=== PATIENT | female | born 1990 | race Caucasian/White ===

== ENCOUNTER 2017-12-21 15:52 | Observation (INO) | payer OTHER ==
[~2017-12-21] VITALS: Ht 157.5 cm; Wt 61.2 kg
[~2017-12-21 15:52] MED LIST: LO LOESTRIN FE1 TAB PO
--- NOTE | 2017-12-21 16:55 | ED GI/GU/ABDOMINAL COMPLAINT ---
History of Present Illness General Chief Complaint: Abdominal Pain/Flank Pain Stated Complaint: R SIDE ABD PAIN Source: patient Exam Limitations: no limitations Vital Signs & Intake/Output Vital Signs & Intake/Output Vital Signs Date Time Temp Pulse Resp B/P B/P Pulse O2 O2 Flow FiO2 Mean Ox Delivery Rate 12/21 1859 98.2 74 16 135/60 100 Room Air 12/21 1600 99.3 74 15 122/72 98 Room Air Room Air Allergies Coded Allergies: No Known Allergies (12/21/17) Reconcile Medications NORETHINDRONE-E.ESTRADIOL-IRON (Lo Loestrin Fe 1-10 Tablet) 1MG-10(24) TABLET 1 TAB PO DAILY CONTROL (Reported) Triage Note: PT SENT TO ED FROM URGENT CARE FOR R/O APPENDICITIS. PT HAS RLQ ABD PAIN SINCE YESTERDAY. +N/-V/-D. PT'S TEMP 99.3 IN TRIAGE. Triage Nurses Notes Reviewed? yes ? N Is pt currently ? No Onset: Abrupt Duration: day(s): (2), constant, getting worse Timing: recent history Location: right lower quadrant Radiation: no radiation Activities at Onset: none No Modifying Factors: none HPI: 27-year-old female comes into the emergency room for further evaluation of abdominal pain that started above her belly button that is now localized to the right lower side of her abdomen getting progressively worse since yesterday. Decreased appetite. Denies any fever vomiting. Eyes any changes in bowel movement. Denies any vaginal discharge or urinary symptoms. Denies any prior abdominal surgeries. She comes in for further evaluation. Past History Travel History Traveled to [place] past 21 day No Medical History Any Pertinent Medical History? see below for history Neurological: NONE EENT: NONE Cardiovascular: NONE Respiratory: NONE Gastrointestinal: colitis Hepatic: NONE Surgical History Surgical History: none Psychosocial History What is your primary language Romanian Tobacco Use: Never used ETOH Use: occasional use Illicit Drug Use: denies illicit drug use Family History Hx Contributory? No Review of Systems Review of Systems Constitutional: Reports: no symptoms. EENTM: Reports: no symptoms. Respiratory: Reports: no symptoms. Cardiovascular: Reports: no symptoms. GI: Reports: see HPI. Genitourinary: Reports: no symptoms. Musculoskeletal: Reports: no symptoms. Skin: Reports: no symptoms. Neurological/Psychological: Reports: no symptoms. Hematologic/Endocrine: Reports: no symptoms. Immunologic/Allergic: Reports: no symptoms. All Other Systems: Reviewed and Negative Physical Exam Physical Exam General Appearance: well developed/nourished, alert, awake, mild distress Head: atraumatic, normal appearance Eyes: Bilateral: normal appearance. Ears, Nose, Throat, Mouth: hearing grossly normal, moist mucous membrane Neck: normal inspection Respiratory: normal breath sounds, no respiratory distress Cardiovascular: regular rate/rhythm Gastrointestinal: soft, tenderness (RLQ) Back: normal inspection Extremities: normal range of motion Neurologic/Psych: awake, alert, oriented x 3 Skin: intact, normal color Core Measures ACS in differential dx? No Sepsis Present: No Sepsis Focused Exam Completed? No Progress Differential Diagnosis: appendicitis, diverticulitis, ectopic , ovarian cyst, ovarian torsion Plan of Care: Orders Procedure Date/time Status URINE 12/21 1653 Complete PARTIAL THROMBOPLASTIN TIME 12/21 1653 Complete PROTHROMBIN TIME 12/21 1653 Complete COMPREHENSIVE METABOLIC PANEL 12/21 1653 Complete CBC WITHOUT DIFFERENTIAL 12/21 1653 Complete Current Medications Sig/Kermit Start time Last Medication Dose Stop Time Status Admin Ampicillin Sodium/ 3,000 MG ONCE ONE 12/21 1900 AC Sulbactam Sodium 12/21 192 (Unasyn) Sodium Chloride 100 ML (Normal Saline 0.9%) Laboratory Tests 12/21/17 1708: Urine Test NEGATIVE 12/21/17 170: Anion Gap 14, Estimated GFR > 60, BUN/Creatinine Ratio 15.0, Glucose 86, Calcium 9.7, Total Bilirubin 0.5, AST 24, ALT 16, Alkaline Phosphatase 47, Total Protein 8.0, Albumin 4.6, Globulin 3.4, Albumin/Globulin Ratio 1.4, PT 11.5, INR 1.05, APTT 26, CBC w Diff NO MAN DIFF REQ, RBC 5.02, MCV 83.4, MCH 27.6, MCHC 33.2, RDW 12.4, MPV 7.6, Gran % 83.0 H, Lymphocytes % 10.6 L, Monocytes % 5.5, Eosinophils % 0.5, Basophils % 0.4, Absolute Granulocytes 10.5 H, Absolute Lymphocytes 1.3, Absolute Monocytes 0.7 H, Absolute Eosinophils 0.1, Absolute Basophils 0 Diagnostic Imaging: Viewed by Me: CT Scan. Discussed w/RAD: CT Scan. Radiology Impression: PATIENT: HUGH COOPER PRESENT AGE: 27 PATIENT ACCOUNT NO: [id number] : 90 LOCATION: [facility] ORDERING PHYSICIAN: Golden MARTINI SERVICE DATE: 12/21/17 EXAM TYPE : CAT - CT ABD & PELVIS W IV CONTRAST EXAMINATION: CT ABDOMEN AND PELVIS WITH CONTRAST CLINICAL INFORMATION: Right lower quadrant pain. COMPARISON: None TECHNIQUE: Multidetector volumetric imaging was performed of the abdomen and pelvis following IV administration of 95 mL of Optiray 320 intravenous contrast. Sagittal and coronal reformatted images were obtained on the technologist's workstation. DLP: 234.18 mGy-cm FINDINGS: LUNG BASES: The visualized lung bases are unremarkable. LIVER, GALLBLADDER, AND BILIARY TREE: The liver is normal in size, shape, and attenuation. No focal hepatic lesion or biliary ductal dilatation is present. The gallbladder is unremarkable with no evidence of radiopaque gallstones, gallbladder wall thickening, or obvious pericholecystic inflammatory changes. PANCREAS: Unremarkable. SPLEEN: Unremarkable. ADRENAL GLANDS: Unremarkable. KIDNEYS AND URETERS: The kidneys are normal in size, shape , and attenuation. No hydronephrosis, hydroureter, or calculi seen. No perinephric stranding. BLADDER: Unremarkable. GASTROINTESTINAL TRACT: The small and large bowel are unremarkable. The appendix is edematous measuring 1 cm in diameter with edema in the periappendiceal fat. Findings of appendicitis without perforation. MESENTERY: Small volume of fluid in the cul-de-sac. ABDOMINAL WALL: No significant hernia is appreciated. LYMPH NODES: Normal. VASCULAR: Unremarkable. PELVIC VISCERA: Unremarkable. OSSEOUS STRUCTURES: Unremarkable. IMPRESSION: Appendicitis. DICTATED BY: Jacoby Gutiérrez MD DATE/TIME DICTATED:1832 HEALTHCARE MANAGEMENT CONSULTANT:MELLISA DATE/TIME TRANSCRIBED:12/21/171832 CONFIDENTIAL, DO NOT COPY WITHOUT APPROPRIATE AUTHORIZATION. <Electronically signed in Other Vendor System> SIGNED BY: Jacoby Gutiérrez MD 12/21/171841 Initial ED EKG: none Comments: 12/21/2017 7:02:[address] duenas [facility] Departure Disposition: STILL A PATIENT Condition: Stable Clinical Impression Primary Impression: Acute appendicitis Referrals: Chano Swartz DO (PCP/Family) Departure Forms: Customer Survey General Discharge Information OR/GI Note Spoke With: Cem Duenas DO ED Treatment Decision: LIZZIE COOPEREN requires urgent operative management or an emergent procedure that cannot be performed in the Emergency Room setting. Transport To: [facility] Critical Care Note Critical Care Note Critical Care Time: 30-74 min (35)
[2017-12-21 17:27] LABS: ABSOLUTE BASOPHIL COUNT 0 /CUMM (0.0-0.2); ABSOLUTE EOSINOPHIL COUNT 0.1 /CUMM (0.0-0.7); ABSOLUTE GRANULOCYTE CT 10.5 /CUMM (1.4-6.5); ABSOLUTE LYMPH COUNT 1.3 /CUMM (1.2-3.4); ABSOLUTE MONOCYTE COUNT 0.7 /CUMM (0.10-0.60); BASOPHIL % 0.4 % (0.0-2.0); EOSINOPHIL % 0.5 % (0-5); HEMATOCRIT 41.9 % (37-47); MEAN CORPUSCULAR HGB 27.6 PG (27.0-31.0); MEAN CORPUSCULAR HGB CONC 33.2 G/DL (33.0-37.0); MEAN CORPUSCULAR VOLUME 83.4 FL (81.0-99.0); MEAN PLATELET VOLUME 7.6 FL (7.4-10.4); PLATELET COUNT 369 /CUMM (130-400); RBC DISTRIBUTION WIDTH 12.4 % (11.5-14.5); RED BLOOD CELL CT 5.02 /CUMM (4.20-5.40); WHITE BLOOD CELL COUNT 12.6 /CUMM (4.8-10.8)
[2017-12-21 17:32] LABS: PT 11.5 SEC (9.4-12.5); PTT 26 SEC (25-37)
--- NOTE | 2017-12-21 18:42 | CT SCAN REPORT ---
EXAMINATION: CT ABDOMEN AND PELVIS WITH CONTRAST CLINICAL INFORMATION: Right lower quadrant pain. COMPARISON: None TECHNIQUE: Multidetector volumetric imaging was performed of the abdomen and pelvis following IV administration of 95 mL of Optiray 320 intravenous contrast. Sagittal and coronal reformatted images were obtained on the technologist's workstation. DLP: 234.18 mGy-cm FINDINGS: LUNG BASES: The visualized lung bases are unremarkable. LIVER, GALLBLADDER, AND BILIARY TREE: The liver is normal in size, shape, and attenuation. No focal hepatic lesion or biliary ductal dilatation is present. The gallbladder is unremarkable with no evidence of radiopaque gallstones, gallbladder wall thickening, or obvious pericholecystic inflammatory changes. PANCREAS: Unremarkable. SPLEEN: Unremarkable. ADRENAL GLANDS: Unremarkable. KIDNEYS AND URETERS: The kidneys are normal in size, shape, and attenuation. No hydronephrosis, hydroureter, or calculi seen. No perinephric stranding. BLADDER: Unremarkable. GASTROINTESTINAL TRACT: The small and large bowel are unremarkable. The appendix is edematous measuring 1 cm in diameter with edema in the periappendiceal fat. Findings of appendicitis without perforation. MESENTERY: Small volume of fluid in the cul-de-sac. ABDOMINAL WALL: No significant hernia is appreciated. LYMPH NODES: Normal. VASCULAR: Unremarkable. PELVIC VISCERA: Unremarkable. OSSEOUS STRUCTURES: Unremarkable. IMPRESSION: Appendicitis.
--- NOTE | 2017-12-21 19:40 | History & Physical Pre-Op ---
Thania Da Silva 12/21/171933: General Information and HPI MD Statement: I have seen and personally examined HUGH COOPER and documented this H&P. The patient is a 27 year old F who presented with a patient stated chief complaint of []. Source of Information: patient, family Exam Limitations: no limitations History of Present Illness: A 27-year-old female presented to the emergency room complaining of right lower quadrant pain and tenderness that started 2 days ago. She felt generalized abdominal achiness about 2 days ago with nausea and decreased appetite today and localized to the right lower quadrant. She has no history of prior surgeries but has seen a framing inspector in the past for colitis. Patient states she has a sensitivity when she takes antibiotics but has never had a history of C. difficile. She reports no fevers or chills and feels good overall Allergies/Medications Allergies: Coded Allergies: No Known Allergies (12/21/17) Home Med list NORETHINDRONE-E.ESTRADIOL-IRON (Lo Loestrin Fe 1-10 Tablet) 1MG-10(24) TABLET 1 TAB PO DAILY CONTROL (Reported) Compliance With Home Meds: GOOD Past History Medical History Blood Transfusion Hx: No Neurological: NONE EENT: NONE Cardiovascular: NONE Respiratory: NONE Gastrointestinal: colitis Hepatic: NONE Surgical History Pertinent Surgical History: none Past Family/Social History Psychosocial History ETOH Use: occasional use Illicit Drug Use: denies illicit drug use Review of Systems Review of Systems: Constitutional: No chills no fever no weakness HEENT: No blurred vision visual changes no throat pain nasal pain CV: denies chest pain edema orthopnea syncopal episode no peripheral edema Respiratory: No cough hemoptysis shortness of breath or wheeze GI: POS abdominal pain NO bloating constipation or diarrhea or bloody stools no vomiting Musculoskeletal: No neck pain back pain or joint swelling Skin: No recent acute changes in skin Neurological: No dizziness weakness or acute mental status changes Hematologic: no history of blood dyscrasia to include PE DVT or bleeding disorder No reported reaction to general anesthetics No recent fevers fluids or infections Exam & Diagnostic Data Last 24 Hrs of Vital Signs/I&O Vital Signs Date Time Temp Pulse Resp B/P B/P Pulse O2 O2 Flow FiO2 Mean Ox Delivery Rate 12/21 1903 Room Air 12/21 1859 98.2 74 16 135/60 100 Room Air 12/21 1600 99.3 74 15 122/72 98 Room Air Room Air Physical Exam: On physical examination patient is lying on stretcher alert and oriented 3 and appears comfortable HEENT is within normal limits Neck is supple with active range of motion nontender Chest clear to auscultation symmetric without rales rhonchi or wheeze Heart regular rate and rhythm without murmurs rubs gallops Abdomen is flat without distention tender to palpation in the right lower quadrant positive bowel sounds throughout Bilateral lower extremities without edema and calves are soft Assessment/Plan Assessment/Plan: Assessment and plan CAT scan shows acute appendicitis Patient was started on Unasyn IV and will remain nothing by mouth here in the emergency room. All risks benefits and complications have been discussed with the patient and she would like to proceed with laparoscopic appendectomy. She is comfortable on IV Tylenol As Ranked By This Provider Problem List: 1. Migraine headache 2. Acute appendicitis Admission Lab Results I reviewed the following labs: Laboratory Tests 12/21 12/21 1708 1700 Chemistry Sodium (137 - 145 mmol/L) 139 Potassium (3.5 - 5.1 mmol/L) 4.1 Chloride (98 - 107 mmol/L) 101 Carbon Dioxide (22 - 30 mmol/L) 24 Anion Gap (5 - 16) 14 BUN (7 - 17 mg/dL) 12 Creatinine (0.5 - 1.0 mg/dL) 0.8 Estimated GFR (>60 ml/min) > 60 BUN/Creatinine Ratio (7 - 25 %) 15.0 Glucose (65 - 99 mg/dL) 86 Calcium (8.4 - 10.2 mg/dL) 9.7 Total Bilirubin (0.2 - 1.3 mg/dL) 0.5 AST (14 - 36 U/L) 24 ALT (9 - 52 U/L) 16 Alkaline Phosphatase (<127 U/L) 47 Total Protein (6.3 - 8.2 g/dL) 8.0 Albumin (3.5 - 5.0 g/dL) 4.6 Globulin (1.9 - 4.2 gm/dL) 3.4 Albumin/Globulin Ratio (1.1 - 2.2 %) 1.4 Coagulation PT (9.4 - 12.5 SEC) 11.5 INR (0.90 - 1.19) 1.05 APTT (25 - 37 SEC) 26 Hematology CBC w Diff NO MAN DIFF REQ WBC (4.8 - 10.8 /CUMM) 12.6 H RBC (4.20 - 5.40 /CUMM) 5.02 Hgb (12.0 - 16.0 G/DL) 13.9 Hct (37 - 47 %) 41.9 MCV (81.0 - 99.0 FL) 83.4 MCH (27.0 - 31.0 PG) 27.6 MCHC (33.0 - 37.0 G/DL) 33.2 RDW (11.5 - 14.5 %) 12.4 Plt Count (130 - 400 /CUMM) 369 MPV (7.4 - 10.4 FL) 7.6 Gran % (42.2 - 75.2 %) 83.0 H Lymphocytes % (20.5 - 51.1 %) 10.6 L Monocytes % (1.7 - 9.3 %) 5.5 Eosinophils % (0 - 5 %) 0.5 Basophils % (0.0 - 2.0 %) 0.4 Absolute Granulocytes (1.4 - 6.5 /CUMM) 10.5 H Absolute Lymphocytes (1.2 - 3.4 /CUMM) 1.3 Absolute Monocytes (0.10 - 0.60 /CUMM) 0.7 H Absolute Eosinophils (0.0 - 0.7 /CUMM) 0.1 Absolute Basophils (0.0 - 0.2 /CUMM) 0 Urines Urine Test NEGATIVE Cem Duenas DO 12/21/170: Attending MD Review Statement Attending Statement Attending MD Statement: examined this patient, discuss w/resident/PA/TAR HEATER OPERATOR, agreed w/resident/PA/TAR HEATER OPERATOR, discussed with family, reviewed EMR data (avail), reviewed images Attending Assessment/Plan: Patient seen and examined, agree with above. Abdominal pain since yesterday afternoon, non-specific at first and now in RLQ. No appetite. AVSS. Abd-soft, + RLQ tenderness with guarding. Labs WBC 12. CT scan +appendicitis. Patient with acute appendicitis, NPO/IVF/IV Abx, plan for Lap Appy tonight. D/W patient and ED staff.
--- NOTE | 2017-12-21 21:27 | Operative Report ---
Operative/Inv Procedure Report Surgery Date: 12/21/17 Name of Procedure: Laparoscopic appendectomy Pre-Operative Diagnosis: Acute appendicitis Post-Operative Diagnosis: Same Estimated Blood Loss: less than 50ml Surgeon/Bus Repair Supervisor: Cem Bedolla Anesthesia: general endotracheal tube IV Fluids: 900 cc Drains: None Specimens: Appendix Complications: None Condition: Stable Operative Indication: This is a 27-year-old female that presented to the emergency room with abdominal pain. After appropriate workup was completed the patient was diagnosed with acute appendicitis. A laparoscopic possible open appendectomy was discussed in detail. All risks including but not limited to bleeding, infection, and injury to surrounding bowel were discussed in detail. The patient understood everything and decided to proceed. Operative/Procedure Note Note: The patient was brought to the operating room and placed on the table in supine position. Venodyne stockings were placed and adequate general endotracheal anesthesia was obtained. The patient was prepped and draped in standard surgical fashion. Began the procedure by making a 2 cm transverse incision in the infraumbilical crease. Incision was carried down to the fascia. Once the fascia was clearly visualized it was picked up between 2 David clamps and divided in the midline. Once we entered the peritoneum 2 stay 0 Vicryl sutures were placed on each side and a 12 mm blunt port was inserted. The abdominal cavity was insufflated to 15 mmHg. And a 10 mm 30 laparoscope was introduced. Upon initial examination no obvious gross pathology was seen, some hyperemia and inflammatory reaction was noted in the right lower quadrant. Accessory trocars were placed, both 5 mm, one in the left lower quadrant and one suprapubic. Ascending colon was identified and traced proximally, terminal ileum was identified, and we did note the appendix. The base of the appendix was identified and appeared healthy. Distal appendix was markedly inflamed and thickened and adhered to the sidewall. Using blunt dissection and harmonic scalpel the appendix was carefully dissected away from surrounding structures. Once the appendix was away from the omentum and the sidewall the mesoappendix was divided using Harmonic scalpel maintaining hemostasis until the appendiceal base was clearly visualized and freely up in the air. At that point we switched to a 5 mm laparoscope and a 45 mm urban Endo [place] load was inserted and the base was transected. The appendix was placed in an Endobag and removed through the umbilical trocar site. The abdominal cavity was reinsufflated and we switched back to a 10 mm laparoscope. Staple line was examined and some bleeding was noted, that was controlled using endoclips. No other abnormalities were noted. The pelvis and the right lower quadrant were irrigated until clear. All ports were removed under direct visualization, no obvious bleeding was noted. The umbilical trocar site was closed using 0 Vicryl suture. The skin was closed using 4-0 Monocryl. Steri-Strips and dressings were placed. The patient was successfully extubated and transferred to the recovery room in stable condition. The patient tolerated procedure well with no complications. Findings: Acute suppurative appendicitis, non-perforated CC: Chano Swartz DO
[2017-12-21] MEDS ORDERED: NORCO 5-325 TA1 EACH PO (21:37)
[2017-12-21 22:50] VITALS: BP 119/68
[2017-12-22 07:28] VITALS: BP 124/75
--- NOTE | 2017-12-22 07:35 | PN- General Surgery ---
See Addendum Subjective Subjective: 27 Y/O FEMALE S/P LAP APPY. NO PAIN THIS MORNING. PAIN CONTROLLED, NO NAUSEA Objective Vital Signs and I&Os Vital Signs Date Time Temp Pulse Resp B/P B/P Pulse O2 O2 Flow FiO2 Mean Ox Delivery Rate 12/21 2250 98.2 85 18 119/68 99 Room Air 12/21 1903 Room Air 12/21 1859 98.2 74 16 135/60 100 Room Air 12/21 1600 99.3 74 15 122/72 98 Room Air Room Air Intake & Output 12/22 0812/22 0000 12/21 1600 12/21 0812/21 0000 12/20 1600 Intake Total 800 220 Output Total 1000 Balance -200 220 Intake, IV 800 100 Intake, Oral 120 Output, Urine 1000 Patient 135 lb 135 lb Weight Weight Reported by Patient Reported by Patient Measurement Method Physical Exam: CHEST- CTA SYMMETRIC HEART-RRR WITHOUT MRG ABD-FLAT WITHOUT DISTENTION, NT, POS BS GENERALIZED SORENESS Assessment/Plan Assessment/Plan POD#1LAP APPY PLAN TO ADVANCE DIET AND D/C HOME TODAY Core Measures Venous Thromboembolism VTE Risk Factors No risk factors No Mechanical VTE Prophylaxis d/t LowRisk-No Interven Req'd No VTE Pharm Prophylaxis d/t LowRisk-No Interven Req'd
== END 2017-12-22 08:28 ==
LOC: ERH 15:52 → PACUH 21:42 → ENRESERV 21:52 → ENTRNSPT 22:06 → EDTRNSPTSTS 22:29 → EDTRNSPT 22:29 → 2NB 22:32 → CMPTRNSPT 22:44 → 2NB 12-22 08:28
PROVIDERS: Physician Assistant Medical
DX: K35.80 Unspecified acute appendicitis (principal); K52.9 Noninfective gastroenteritis and colitis, unspecified
CPT/HCPCS: 6040; 74177; 81025; 96374; 96375; 99291; C9399; G0378; J0131; J0690; J1885; J2250; J2405; J3010